=== PATIENT | male | born 1945 ===

== ENCOUNTER 2016-10-20 03:06 | Emergency (ER) | payer MEDICARE, MEDICAID ==
[2016-10-20 03:06] VITALS: BMI 45.0
--- NOTE | 2016-10-20 04:11 | ED PDOC ---
HPI: Eye Injury/Pain Additional Complaint(s): 71M p/w a few hours of blurry vision after awakening, but denies associated headaches/ pain on eye movement/double vision/color discrimination/discharge. He says he has had minimal itchiness and ran out of medication 2 months ago. His blurry vision resolved on arrival to the ED. He reports chronic waxing/waning b/l eye redness for which he is being worked up for glaucoma and cataracts with Dr Taylor. PMD: Dr Bruce PMH: HF, COPD, DM, HTN, MÓNICA, Schizophrenia, Prostate ca, denies CVA/IA PSH: Prostate seeds Allergies: NKDA <Kira Soares - Last Filed: 10/20/16 04:36> <Brigid Macedo - Last Filed: 10/20/16 05:57> Time Seen by Provider: 10/20/16 03:33 Chief Complaint (Nursing): Eye Problem Past Medical History Vital Signs: Last Vital Signs Temp 37.0 C 10/20/16 03:15 Pulse 94 H 10/20/16 03:15 Resp 16 10/20/16 03:15 BP 163/76 H 10/20/16 03:15 Pulse Ox 99 10/20/16 03:15 - Medical History PMH: Anxiety, Arthritis, Asthma, Bipolar Disorder, COPD, Depression, Diabetes, Emphysema, HTN, Hypercholesterolemia, Rheumatoid Arthritis, Schizophrenia, Sleep Apnea Denies: Chronic Kidney Disease - Family History Family History: States: Unknown Family Hx <Kira Soares - Last Filed: 10/20/16 04:36> Vital Signs: Last Vital Signs Temp 98.6 F 10/20/16 03:15 Pulse 94 H 10/20/16 03:15 Resp 16 10/20/16 03:15 BP 163/76 H 10/20/16 03:15 Pulse Ox 99 10/20/16 04:39 <Brigid Macedo - Last Filed: 10/20/16 05:57> - Home Medications Home Medications: Ambulatory Orders Medication Instructions Recorded ALPRAZolam [Xanax] 1 mg PO DAILY 08/10/16 Aripiprazole 15 mg PO DAILY 08/10/16 Bimatoprost [Lumigan] 1 drop BOTHEYES HS 08/10/16 Brinzolamide/Brimonidine Tart 1 drop BOTHEYES BID 08/10/16 [Simbrinza 1%-0.2% Eye Drops] Glimepiride [amaRYL] 2 mg PO QAM 08/10/16 Ibuprofen [Motrin Tab] 400 mg PO Q6 #30 tab 08/10/16 Levocetirizine Dihydrochloride 5 mg PO DAILY 08/10/16 [Xyzal] Metformin HCl [Metformin HCl ER] 500 mg PO DAILY 08/10/16 Montelukast Sodium [Singulair] 10 mg PO QPM 08/10/16 Naproxen [Naprosyn] 500 mg PO BID 08/10/16 Olanzapine [Zyprexa] 20 mg PO HS 08/10/16 Oxycodone HCl/Acetaminophen 1 tab PO Q6 PRN 08/10/16 [Primlev 7.5-300 mg Tablet] Propylene Glycol/Peg 400 [Systane 1 drop BOTHEYES DAILY 08/10/16 Gel Eye Drops] Rosuvastatin Calcium [Crestor] 10 mg PO DAILY 08/10/16 Sertraline HCl 100 mg PO DAILY 08/10/16 Valsartan [Diovan] 160 mg PO DAILY 08/10/16 ARIPiprazole [Abilify] 15 mg PO DAILY 08/12/16 Aspirin [Adult Low Dose Aspirin EC] 81 mg PO DAILY 08/12/16 Fluticasone Nasal [Flonase] 1 spray NADIYA DAILY 08/12/16 Fluticasone/Vilanterol [Breo 1 puff INH DAILY 08/12/16 Ellipta 200-25 Mcg INH] Home Med 1 puff INH QID 08/12/16 Potassium Chloride [Klor-Con M10] 1 tab PO MWF 08/12/16 Azithromycin [Zithromax] 500 mg PO DAILY #3 tablet 08/21/16 Furosemide [Lasix] 40 mg PO BID #0 08/21/16 - Allergies Allergies/Adverse Reactions: Allergies Allergy/AdvReac Type Severity Reaction Status Date / Time No Known Allergies Allergy Verified 10/20/16 03:14 Review of Systems ROS Statement: Except As Marked, All Systems Reviewed And Found Negative Eyes: Positive for: Vision Change <Kira Soares - Last Filed: 10/20/16 04:36> Physical Exam - Reviewed Vital Signs Reviewed: Yes - Physical Exam Appears: Positive for: Well, Non-toxic, No Acute Distress Head Exam: Positive for: ATRAUMATIC, NORMAL INSPECTION Skin: Positive for: Warm, Dry Eye Exam: Positive for: EOMI, PERRL, Conjunctival injection. Negative for: Nystagmus, Periorbital swelling, Periorbital tenderness Neck: Positive for: Normal, Supple Cardiovascular/Chest: Positive for: Regular Rate, Rhythm. Negative for: JVD Respiratory: Positive for: Normal Breath Sounds. Negative for: Rales, Rhonchi, Wheezing Gastrointestinal/Abdominal: Positive for: Bowel Sounds, Soft. Negative for: Tenderness Extremity: Positive for: Pedal Edema (2-3+ to proximal tibia), Capillary Refill. 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 Negative for: Facial Droop <Kira Soares - Last Filed: 10/20/16 04:36> - ECG O2 Sat by Pulse Oximetry: 99 <Kira Soares - Last Filed: 10/20/16 04:36> Medical Decision Making Medical Decision Making: Visual blurriness that has resolved dryness vs. cataracts vs. acute angle glaucoma (much less likely) - Visual Acuity Assessment - CT Head Visual Acuity with corrective lenses: OS-20/50, OD-20/25 <Kira Soares - Last Filed: 10/20/16 04:36> Medical Decision Makin: CT head impression: 1. No definite acute intracranial abnormality. Acute infarction may be CT occult within first 24 hours. If a focal deficit persists, consider followup CT or MRI for further evaluation. Patient stable for d/c. Patient will see [facility] today. CT results discussed with patient who understands and agrees with the plan. Instructed to return to the ED with worsening or concerning symptoms. <Brigid Macedo Y - Last Filed: 10/20/16 05:57> Disposition <Kira Soares - Last Filed: 10/20/16 04:36> - Patient ED Disposition Is Patient to be Admitted: No - Disposition Disposition: Routine/Home Disposition Time: 05:57 <Brigid Macedo - Last Filed: 10/20/16 05:57> - Clinical Impression Clinical Impression: Eye strain - Disposition Referrals: [facility] [Outside] Santo Michael MD [Staff Provider] - Taqueria Bruce MD [Primary Care Provider] - Condition: GOOD Additional Instructions: follow up with opthalmologist today. return to the ED with any worsening or concerning symptoms. Instructions: Blurred Vision (ED)
--- NOTE | 2016-10-20 05:26 | CT ---
EXAM: CT Head Without Intravenous Contrast CLINICAL HISTORY: 71 years old, male; Signs and symptoms; Visual disturbance; Additional info: Blurry vision TECHNIQUE: Axial computed tomography images of the head/brain without intravenous contrast. This CT exam was performed using one or more of the following dose reduction techniques: automated exposure control, adjustment of the mA and/or kV according to patient size, and/or use of iterative reconstruction technique. Coronal and sagittal reformatted images were created and reviewed. COMPARISON: No relevant prior studies available. FINDINGS: Brain: Mild atrophy. No intracranial hemorrhage. No mass. No definite edema. Ventricles: No hydrocephalus. Bones/joints: No acute fracture. Soft tissues: Unremarkable. Vasculature: Atherosclerotic disease of intracranial arteries. Sinuses: Scattered minimal mucosal thickening. Mastoid air cells: No mastoid effusion. Orbits: Unremarkable as visualized. IMPRESSION: 1. No definite acute intracranial abnormality. Acute infarction may be CT occult within first 24 hours. If a focal deficit persists, consider followup CT or MRI for further evaluation. 2. Incidental/non-acute findings are described above.
--- NOTE | 2016-10-20 07:40 | ED PDOC ---
HPI: General Adult Time Seen by Provider: 10/20/16 03:33 Chief Complaint (Nursing): Eye Problem History Per: Patient History/Exam Limitations: no limitations Additional Complaint(s): 71yo male complaining of bilateral eye redness and tearing. Patient admits he was already seen for the same complaint by a provider during the previous shift. He tells me his eyes were itching yesterday but not today. Denies drainage. Also notes some runny nose and congestion. Dr. Loco Past Medical History Vital Signs: Last Vital Signs Temp 98.6 F 10/20/16 03:15 Pulse 94 H 10/20/16 03:15 Resp 16 10/20/16 03:15 BP 163/76 H 10/20/16 03:15 Pulse Ox 99 10/20/16 04:39 - Medical History PMH: Anxiety, Arthritis, Asthma, Bipolar Disorder, COPD, Depression, Diabetes, Emphysema, HTN, Hypercholesterolemia, Rheumatoid Arthritis, Schizophrenia, Sleep Apnea Denies: Chronic Kidney Disease - Family History Family History: States: Unknown Family Hx - Home Medications Home Medications: Ambulatory Orders Medication Instructions Recorded ALPRAZolam [Xanax] 1 mg PO DAILY 08/10/16 Aripiprazole 15 mg PO DAILY 08/10/16 Bimatoprost [Lumigan] 1 drop BOTHEYES HS 08/10/16 Brinzolamide/Brimonidine Tart 1 drop BOTHEYES BID 08/10/16 [Simbrinza 1%-0.2% Eye Drops] Glimepiride [amaRYL] 2 mg PO QAM 08/10/16 Ibuprofen [Motrin Tab] 400 mg PO Q6 #30 tab 08/10/16 Levocetirizine Dihydrochloride 5 mg PO DAILY 08/10/16 [Xyzal] Metformin HCl [Metformin HCl ER] 500 mg PO DAILY 08/10/16 Montelukast Sodium [Singulair] 10 mg PO QPM 08/10/16 Naproxen [Naprosyn] 500 mg PO BID 08/10/16 Olanzapine [Zyprexa] 20 mg PO HS 08/10/16 Oxycodone HCl/Acetaminophen 1 tab PO Q6 PRN 08/10/16 [Primlev 7.5-300 mg Tablet] Propylene Glycol/Peg 400 [Systane 1 drop BOTHEYES DAILY 08/10/16 Gel Eye Drops] Rosuvastatin Calcium [Crestor] 10 mg PO DAILY 08/10/16 Sertraline HCl 100 mg PO DAILY 08/10/16 Valsartan [Diovan] 160 mg PO DAILY 08/10/16 ARIPiprazole [Abilify] 15 mg PO DAILY 08/12/16 Aspirin [Adult Low Dose Aspirin EC] 81 mg PO DAILY 08/12/16 Fluticasone Nasal [Flonase] 1 spray NADIYA DAILY 08/12/16 Fluticasone/Vilanterol [Breo 1 puff INH DAILY 08/12/16 Ellipta 200-25 Mcg INH] Home Med 1 puff INH QID 08/12/16 Potassium Chloride [Klor-Con M10] 1 tab PO MWF 08/12/16 Azithromycin [Zithromax] 500 mg PO DAILY #3 tablet 08/21/16 Furosemide [Lasix] 40 mg PO BID #0 08/21/16 - Allergies Allergies/Adverse Reactions: Allergies Allergy/AdvReac Type Severity Reaction Status Date / Time No Known Allergies Allergy Verified 10/20/16 03:14 - ECG O2 Sat by Pulse Oximetry: 99 Disposition - Clinical Impression Clinical Impression: Eye strain - Disposition Referrals: [facility] [Outside] Santo Michael MD [Staff Provider] - Taqueria Bruce MD [Primary Care Provider] - Disposition: Routine/Home Disposition Time: 05:57 Condition: GOOD Additional Instructions: follow up with opthalmologist today. return to the ED with any worsening or concerning symptoms. Instructions: Blurred Vision (ED)
[2016-10-20 07:43] VITALS: BP 152/81; PULSE 78; RESP 18; TEMP 97.8; O2SAT 96
== END 2016-10-20 10:25 | disposition home or self-care (01) ==
LOC: H.ER 03:06
DX: H53.8 Other visual disturbances (principal)

== ENCOUNTER 2017-03-23 12:39 | Emergency (ER) | payer MEDICARE, MEDICAID ==
[2017-03-23 12:39] VITALS: BMI 45.0
[2017-03-23 12:46] VITALS: BP 134/66; PULSE 99; RESP 18; TEMP 98; O2SAT 99
--- NOTE | 2017-03-23 13:26 | ED PDOC ---
HPI: General Adult Time Seen by Provider: 03/23/17 12:49 Chief Complaint (Nursing): Abnormal Skin Integrity History Per: Patient Additional Complaint(s): Pt. states for the past 3 weeks he's had a pruritic rash initially on the back of both knees. States that rash has since spread to the back of his b/l upper arms and both sides of back and around his waist area. Pt. was prescribed Xyzal by Dr. Bruce for the rash with minimal relief. Denies fever, SOB. Of note, pt. states he wears the same jeans every day for a long time now. Past Medical History Reviewed: Historical Data, Nursing Documentation, Vital Signs Vital Signs: Last Vital Signs Temp 98.0 F 03/23/17 12:43 Pulse 99 H 03/23/17 12:43 Resp 18 03/23/17 12:43 BP 134/66 03/23/17 12:43 Pulse Ox 99 03/23/17 12:43 - Medical History PMH: Anxiety, Arthritis, Asthma, Bipolar Disorder, COPD, Depression, Diabetes, Emphysema, HTN, Hypercholesterolemia, Rheumatoid Arthritis, Schizophrenia, Sleep Apnea Denies: Chronic Kidney Disease - Family History Family History: States: No Known Family Hx - Home Medications Home Medications: Ambulatory Orders Medication Instructions Recorded ALPRAZolam [Xanax] 1 mg PO DAILY 08/10/16 Aripiprazole 15 mg PO DAILY 08/10/16 Bimatoprost [Lumigan] 1 drop BOTHEYES HS 08/10/16 Brinzolamide/Brimonidine Tart 1 drop BOTHEYES BID 08/10/16 [Simbrinza 1%-0.2% Eye Drops] Glimepiride [amaRYL] 2 mg PO QAM 08/10/16 Ibuprofen [Motrin Tab] 400 mg PO Q6 #30 tab 08/10/16 Levocetirizine Dihydrochloride 5 mg PO DAILY 08/10/16 [Xyzal] Metformin HCl [Metformin HCl ER] 500 mg PO DAILY 08/10/16 Montelukast Sodium [Singulair] 10 mg PO QPM 08/10/16 Naproxen [Naprosyn] 500 mg PO BID 08/10/16 Olanzapine [Zyprexa] 20 mg PO HS 08/10/16 Oxycodone HCl/Acetaminophen 1 tab PO Q6 PRN 08/10/16 [Primlev 7.5-300 mg Tablet] Propylene Glycol/Peg 400 [Systane 1 drop BOTHEYES DAILY 08/10/16 Gel Eye Drops] Rosuvastatin Calcium [Crestor] 10 mg PO DAILY 08/10/16 Sertraline HCl 100 mg PO DAILY 08/10/16 Valsartan [Diovan] 160 mg PO DAILY 08/10/16 ARIPiprazole [Abilify] 15 mg PO DAILY 08/12/16 Aspirin [Adult Low Dose Aspirin EC] 81 mg PO DAILY 08/12/16 Fluticasone Nasal [Flonase] 1 spray NADIYA DAILY 08/12/16 Fluticasone/Vilanterol [Breo 1 puff INH DAILY 08/12/16 Ellipta 200-25 Mcg INH] Home Med 1 puff INH QID 08/12/16 Potassium Chloride [Klor-Con M10] 1 tab PO MWF 08/12/16 Azithromycin [Zithromax] 500 mg PO DAILY #3 tablet 08/21/16 Furosemide [Lasix] 40 mg PO BID #0 08/21/16 Cetirizine HCl [Zyrtec] 10 mg PO DAILY #10 capsule 10/20/16 Tobramycin 0.3% [Tobramycin 5 Ml] 1 drop OP TID #1 bottle 10/20/16 Hydrocortisone 2.5% 1 applic TOP BID PRN #5 03/23/17 Hydroxyzine HCl 1 - 2 tab PO Q8 PRN #30 tablet 03/23/17 - Allergies Allergies/Adverse Reactions: Allergies Allergy/AdvReac Type Severity Reaction Status Date / Time No Known Allergies Allergy Verified 10/20/16 03:14 Review of Systems ROS Statement: Except As Marked, All Systems Reviewed And Found Negative Skin: Positive for: Rash Physical Exam - Physical Exam Appears: Positive for: Well, Non-toxic, No Acute Distress Skin: Positive for: Normal Color, Warm, Rash (scattered erythematous papules on b/l posterior legs, b/l posterior upper arms, b/l of entire back and around entire waist line; no vesicles or surrounding erythema or pustles) Eye Exam: Positive for: Normal appearance Extremity: Positive for: Normal ROM Neurologic/Psych: Positive for: Alert, Oriented. Negative for: Aphasia, Facial Droop - ECG O2 Sat by Pulse Oximetry: 99 - Progress ED Course And Treament: FSBS: [address] Alvarado who recommends Hydrocortisone 2% and hydroxyzine. Case d/w Dr. Bruce who agrees with care and requests that pt. call his office tomorrow to make an appointment. Disposition - Clinical Impression Clinical Impression: Contact dermatitis - Patient ED Disposition Is Patient to be Admitted: No - Disposition Referrals: Taqueria Bruce MD [Staff Provider] - Disposition: Routine/Home Disposition Time: 13:20 Condition: STABLE Prescriptions: Hydrocortisone 2.5% 1 applic TOP BID PRN #5 PRN Reason: Rash Hydroxyzine HCl 1 - 2 tab PO Q8 PRN #30 tablet PRN Reason: itching or rash Instructions: Contact Dermatitis (ED) Print Language: COMORAN
== END 2017-03-23 14:41 | disposition home or self-care (01) ==
LOC: H.ER 12:39
DX: L25.9 Unspecified contact dermatitis, unspecified cause (principal)

== ENCOUNTER 2017-04-02 17:00 | Inpatient (IN) | payer MEDICARE, MEDICAID ==
[2017-04-02 17:00] VITALS: BMI 45.0
--- NOTE | 2017-04-02 19:23 | ED PDOC ---
Lower Extremity Pain/Injury Time Seen by Provider: 04/02/17 19:08 Chief Complaint (Nursing): Lower Extremity Problem/Injury Chief Complaint (Provider): right leg pain/swelling History Per: Patient History/Exam Limitations: no limitations Onset/Duration Of Symptoms: Days (1 month) Current Symptoms Are (Timing): Still Present Additional History Per: Patient Additional Complaint(s): 71 y/o male presents with right leg pain/swelling x 1 month. Patient states he thinks he may have banged right lower leg on a fan one month ago, since then has had problem with redness, pain, and swelling. Patient was seen by his primary doctor Dr. Bruce, who prescribed Mupirocin and "antibiotic pills" 5 days ago but patient notes symptoms to be worsening. Patient states he thinks he may have saw pus coming from area today. Denies fever, nausea/vomiting, chest pain, shortness of breath, palpitations, numbness/weakness lower extremities, limitation of movement. Past Medical History Reviewed: Historical Data, Nursing Documentation, Vital Signs Vital Signs: Last Vital Signs Temp 99.0 F 04/02/17 17:32 Pulse 104 H 04/02/17 17:32 Resp 16 04/02/17 17:32 BP 133/77 04/02/17 17:32 Pulse Ox 94 L 04/02/17 17:32 - Medical History PMH: Anxiety, Arthritis, Asthma, Bipolar Disorder, COPD, Depression, Diabetes, Emphysema, HTN, Hypercholesterolemia, Rheumatoid Arthritis, Schizophrenia, Sleep Apnea Denies: Chronic Kidney Disease - Family History Family History: States: Unknown Family Hx - Home Medications Home Medications: Ambulatory Orders Medication Instructions Recorded ALPRAZolam [Xanax] 1 mg PO DAILY 08/10/16 Aripiprazole 15 mg PO DAILY 08/10/16 Glimepiride [amaRYL] 2 mg PO QAM 08/10/16 Levocetirizine Dihydrochloride 5 mg PO DAILY 08/10/16 [Xyzal] Metformin HCl [Metformin HCl ER] 500 mg PO DAILY 08/10/16 Montelukast Sodium [Singulair] 10 mg PO QPM 08/10/16 Rosuvastatin Calcium [Crestor] 10 mg PO DAILY 08/10/16 Sertraline HCl 100 mg PO DAILY 08/10/16 Valsartan [Diovan] 160 mg PO DAILY 08/10/16 Fluticasone Nasal [Flonase] 1 spray NADIYA DAILY 08/12/16 Fluticasone/Vilanterol [Breo 1 puff INH DAILY 08/12/16 Ellipta 200-25 Mcg INH] Olanzapine [Zyprexa] 15 mg PO DAILY 04/03/17 Torsemide [Demadex] 20 mg PO BID 04/03/17 - Allergies Allergies/Adverse Reactions: Allergies Allergy/AdvReac Type Severity Reaction Status Date / Time No Known Allergies Allergy Verified 10/20/16 03:14 Review of Systems ROS Statement: Except As Marked, All Systems Reviewed And Found Negative Musculoskeletal: Positive for: Leg Pain (right lower leg) Physical Exam - Reviewed Nursing Documentation Reviewed: Yes Vital Signs Reviewed: Yes - Physical Exam Appears: Positive for: Well, Non-toxic, No Acute Distress Head Exam: Positive for: ATRAUMATIC, NORMAL INSPECTION, NORMOCEPHALIC Skin: Positive for: Normal Color Cardiovascular/Chest: Positive for: Regular Rate, Rhythm Respiratory: Positive for: Normal Breath Sounds Extremity: Positive for: Swelling (bilateral lower extremities, R>L. Distal right lower extremity with scabbed abrasions lateral aspect. + surrounding erythema, tenderness, warm to touch. No drainage. FROM) Neurologic/Psych: Positive for: Alert, Oriented - Laboratory Results Result Diagrams: 04/02/17 19:55 04/02/17 19:55 - ECG ECG: Positive for: Viewed By Me (reviewed by ED attending) ECG Rhythm: Positive for: Sinus Rhythm O2 Sat by Pulse Oximetry: 94 Pulse Ox Interpretation: Normal - Radiology X-Ray: Viewed By Me X-Ray Interpretation: No Acute Disease - Progress ED Course And Treament: labs, venous duplex right lower extremity EXAM: US Duplex Right Lower Extremity Veins EXAM DATE/TIME: 04/02/2017 7:19 PM CLINICAL HISTORY: 71 years old, male; Pain; Leg, lower; Right; Additional info: Right leg pain/ swelling TECHNIQUE: Real-time ultrasound scan of the veins of the right lower extremity with color Doppler flow, spectral waveform analysis and compression. COMPARISON: US - DUPLEX LOWER EXTRM VEIN RIGHT 2015-08-05 13:22 FINDINGS: Deep veins: Common femoral, superficial femoral and popliteal veins were evaluated. Posterior tibial vein could not be visualized. All veins examined are compressible. There are no intraluminal filling defects. There is expected blood flow on Doppler imaging. There is change in waveform with augmentation Soft tissues: There is diffuse edema in the calf and continuing to the right ankle. Calf edema prevents identification of the posterior tibial vein. There is a fluid collection in the right popliteal fossa Impression: No deep venous thrombosis in the visualized vascular segments of the right lower extremity; continued diffuse calf edema which prevents visualization of the posterior tibial vein; new fluid collection in the right popliteal fossa Thank you for allowing us to participate in the care of your patient. Case discussed with Dr. Bruce, will admit for failed outpatient treatment of cellulitis. IV vanco, IV zosyn doses ordered in ED Disposition - Clinical Impression Clinical Impression: Cellulitis - Patient ED Disposition Is Patient to be Admitted: Yes - Disposition Disposition Time: 22:19 Condition: FAIR
[2017-04-02 20:07] LABS: BASO # 0.1 K/uL (0.0-0.2); BASO % 0.8 % (0.0-2.0); EOS # 0.2 K/uL (0.0-0.7); EOS % 2.5 % (0.0-4.0); HEMATOCRIT 40.3 % (35.0-51.0); LYMPH # 1.5 K/uL (1.0-4.3); LYMPH % 18.6 % (20.0-40.0); MEAN CORPUSCULAR HEMOGLOBIN 28.4 pg (27.0-31.0); MEAN CORPUSCULAR HGB CONC 32.2 g/dL (33.0-37.0); MEAN PLATELET VOLUME 7.5 fl (7.2-11.7); MONO # 0.6 K/uL (0.0-0.8); MONO % 7.8 % (0.0-10.0); NEUT # 5.8 K/uL (1.8-7.0); NEUT % 70.3 % (50.0-75.0); RED CELL DISTRIBUTION WIDTH 14.5 % (11.5-14.5); WHITE BLOOD COUNT 8.3 K/uL (4.8-10.8)
[2017-04-02 20:11] LABS: VENOUS BLOOD GAS BASE EXCESS 5.5 mmol/L (0.0-2.0); VENOUS BLOOD GAS MODE ROOM AIR; VENOUS BLOOD GAS PCO2 56 mmHg (40-60); VENOUS BLOOD PH 7.37 (7.32-7.43)
[2017-04-02 20:21] LABS: ALB/GLOB RATIO 1.2 (1.0-2.1); ALKALINE PHOSPHATASE 69 U/L (38-126); ALT/SGPT 51 U/L (21-72); AST/SGOT 62 U/L (17-59); BILIRUBIN,TOTAL 0.2 mg/dl (0.2-1.3); BLOOD UREA NITROGEN 21 mg/dl (9-20); CALCIUM 8.6 mg/dL (8.4-10.2); CARBON DIOXIDE 30 mmol/L (22-30); CHLORIDE 106 mmol/L (98-107); GFR AFRICAN-AMERICAN > 60; GLUCOSE,RANDOM 70 mg/dL (75-110); POTASSIUM 3.7 MMOL/L (3.6-5.0); SODIUM 146 mmol/l (132-148)
--- NOTE | 2017-04-02 22:07 | US ---
EXAM: US Duplex Right Lower Extremity Veins EXAM DATE/TIME: 04/02/2017 7:19 PM CLINICAL HISTORY: 71 years old, male; Pain; Leg, lower; Right; Additional info: Right leg pain/swelling TECHNIQUE: Real-time ultrasound scan of the veins of the right lower extremity with color Doppler flow, spectral waveform analysis and compression. COMPARISON: US - DUPLEX LOWER EXTRM VEIN RIGHT 2015-08-05 13:22 FINDINGS: Deep veins: Common femoral, superficial femoral and popliteal veins were evaluated. Posterior tibial vein could not be visualized. All veins examined are compressible. There are no intraluminal filling defects. There is expected blood flow on Doppler imaging. There is change in waveform with augmentation Soft tissues: There is diffuse edema in the calf and continuing to the right ankle. Calf edema prevents identification of the posterior tibial vein. There is a fluid collection in the right popliteal fossa . Impression: No deep venous thrombosis in the visualized vascular segments of the right lower extremity; continued diffuse calf edema which prevents visualization of the posterior tibial vein; new fluid collection in the right popliteal fossa
[2017-04-02] MEDS ORDERED: Piperacillin/Tazobact 3.375 GM in Sodium Chloride 0.9% 100 ML IV ONE (22:14)
[2017-04-02] MEDS ORDERED: Vancomycin 1 g Inj ONE (22:37)
[2017-04-02] MEDS ORDERED: Piperacillin/Tazobact 3.375 gm Inj IVPB ONE (22:37)
[2017-04-03 06:55] LABS: HEMATOCRIT 37.7 % (35.0-51.0); MEAN CELL VOLUME 88.4 fl (80.0-94.0); MEAN CORPUSCULAR HEMOGLOBIN 28.6 pg (27.0-31.0); MEAN CORPUSCULAR HGB CONC 32.3 g/dL (33.0-37.0); RED CELL DISTRIBUTION WIDTH 14.6 % (11.5-14.5); WHITE BLOOD COUNT 6.8 K/uL (4.8-10.8)
[2017-04-03 07:25] LABS: ALB/GLOB RATIO 1.1 (1.0-2.1); ALKALINE PHOSPHATASE 59 U/L (38-126); ALT/SGPT 45 U/L (21-72); AST/SGOT 46 U/L (17-59); BILIRUBIN,TOTAL 0.2 mg/dl (0.2-1.3); BLOOD UREA NITROGEN 20 mg/dl (9-20); CALCIUM 8.1 mg/dL (8.4-10.2); CARBON DIOXIDE 29 mmol/L (22-30); CHLORIDE 107 mmol/L (98-107); CHOLESTEROL 104 mg/dL (0-199); GFR AFRICAN-AMERICAN > 60; GLUCOSE,RANDOM 95 mg/dL (75-110); POTASSIUM 3.8 MMOL/L (3.6-5.0); SODIUM 145 mmol/l (132-148); TOTAL PROTEIN 6.3 G/DL (6.3-8.2)
[2017-04-03] MEDS: Insulin Regular 100 units/ml SC SCH ×3 (07:30→22:45)
[2017-04-03 07:43] LABS: T4 6.31 ug/dl (5.5-11.0)
[2017-04-03 07:56] LABS: THYROID STIMULATING HORMONE 2.41 mIU/ML (0.46-4.68)
[2017-04-03] MEDS: GlipiZIDE 5 mg SR Tab PO SCH (08:00)
--- NOTE | 2017-04-03 08:04 | CARD ---
APPROVED REPORT EKG Measurement Heart [id number] <Conclusion> Normal sinus rhythm Right bundle branch block Abnormal ECG
[2017-04-03] MEDS ORDERED: ARIPIPRAZOLE 15 MG PO SCH (09:00)
[2017-04-03] MEDS: Piperacillin/Tazobact 3.375 GM in Sodium Chloride 0.9% 100 ML IVPB SCH ×3 (09:00→21:17)
[2017-04-03] MEDS: Enoxaparin 40 mg Syringe SC SCH (09:00)
--- NOTE | 2017-04-03 10:27 | RAD ---
HISTORY: admit COMPARISON: 08/21/2016. FINDINGS: LUNGS: The lungs are well inflated and. PLEURA: No significant pleural effusion identified, no pneumothorax apparent. CARDIOVASCULAR: Normal. OSSEOUS STRUCTURES: No significant abnormalities. VISUALIZED UPPER ABDOMEN: Normal. OTHER FINDINGS: None. IMPRESSION: No active pulmonary disease.
--- NOTE | 2017-04-03 13:10 | CP.PCM.HP ---
History of Present Illness - History of Present Illness History of Present Illness: CC: R leg pain. 71 y/o M, with multiple chronic medical conditions came to [facility] to be evaluated for pain in his RLE for a month increased one week [facility]. Pt c/o of RLE moderate severity pain 5:10 and at times severe, constant, sharp associated to redness/swelling, Pt using Mupirocin, abx for 5 days with no improvement. Worsening symptoms: Hx DMII, Hx Chronic Patricia Insufficiency L/E, Morbid obesity (BMI= 49.2), Edema 2+ pitting b/l legs and R/A. Patient reported that about a week [facility], while at the 2nd home he was scratching his R side of neck when the nurse told him he had a bed bug on that site, Pt was sent home and was requested to get a Medical clearance to return to [facility] prior to AD. Aggravated factor: Difficulty walking 2nd to pain and swelling. Pt denied: Fever, chills, n/v/d, abdominal pain, dizziness, CP, palpitation, numbness/weakness lower extremities, SOB, sick contact, recent travel. Hx of R/A, O/A, DMII, HTN, COPD, Sleep Apnea, Prostate Ca, Depression, Anxiety, Schizophrenia, Bipolar Disorder, Cataract, Glaucoma,Hx Tumor LLE removed years ago. Ext U-S shows: No DVT. Present on Admission - Present on Admission Any Indicators Present on Admission: No Review of Systems - Constitutional Constitutional: Other (Morbid obesity) - EENT Eyes: Loss of Vision Ears: Other (negative) Nose/Mouth/Throat: Other (negative) - Cardiovascular Cardiovascular: Leg Edema, Rapid Heart Rate - Respiratory Respiratory: Other (negative) - Gastrointestinal Gastrointestinal: Other (negative) - Genitourinary Genitourinary: Other (negative) - Musculoskeletal Musculoskeletal: Arthralgias, Other (RLE pain) - Integumentary Integumentary: Erythema, Swelling - Neurological Neurological: Other (negative) - Psychiatric Psychiatric: Anxiety, Depression - Endocrine Endocrine: Other (Morbid obesity) - Hematologic/Lymphatic Hematologic: Other (negative) Past Patient History - Infectious Disease Hx of Infectious Diseases: None - Past Medical History & Family History Past Medical History?: Yes Pertinent Family History: Unknown - Past Social History Smoking Status: Former Smoker Alcohol: None Drugs: Denies Home Situation {Lives}: Alone - CARDIAC Hx Cardiac Disorders: Yes Hx Hypercholesterolemia: Yes Hx Hypertension: Yes - PULMONARY Hx Respiratory Disorders: Yes Hx Asthma: Yes Hx Chronic Obstructive Pulmonary Disease (COPD): Yes Hx Emphysema: Yes Hx Sleep Apnea: Yes - NEUROLOGICAL Hx Neurological Disorder: No - HEENT Hx HEENT Problems: Yes Hx Cataracts: Yes Hx Glaucoma: Yes - RENAL Hx Chronic Kidney Disease: No - ENDOCRINE/METABOLIC Hx Endocrine Disorders: Yes Hx Diabetes Mellitus Type 2: Yes - HEMATOLOGICAL/ONCOLOGICAL Hx Blood Disorders: Yes Hx Cancer: Yes (Prostate) - INTEGUMENTARY Hx Dermatological Problems: Yes Hx Cellulitis: Yes (L/E) - MUSCULOSKELETAL/RHEUMATOLOGICAL Hx Musculoskeletal Disorders: Yes Hx Arthritis: Yes Hx Rheumatoid Arthritis: Yes - GASTROINTESTINAL Hx Gastrointestinal Disorders: No - GENITOURINARY/GYNECOLOGICAL Hx Genitourinary Disorders: Yes Hx Prostate Cancer: Yes - PSYCHIATRIC Hx Psychophysiologic Disorder: Yes Hx Anxiety: Yes Hx Bipolar Disorder: Yes Hx Depression: Yes Hx Schizophrenia: Yes - SURGICAL HISTORY Hx Surgeries: Yes Hx Joint Replacement: Yes (left knee) Hx Orthopedic Surgery: Yes (total left knee-11 years ago) Other/Comment: 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,index - ANESTHESIA Hx Anesthesia: Yes Hx Anesthesia Reactions: No Hx Malignant Hyperthermia: No Meds Home Medications: Home Medication List Medication Instructions Recorded Confirmed Type Insulin Human Regular [HumuLIN R] 0 units SC ACCU-CHECK ml 04/06/17 Rx Piperacill/Tazo 3.375gm in Dex 3.375 gm IVPB Q6 #15 bag 04/06/17 Rx [Zosyn 3.375 Gm IV] Allergies/Adverse Reactions: Allergies Allergy/AdvReac Type Severity Reaction Status Date / Time No Known Allergies Allergy Verified 10/20/16 03:14 Physical Exam - Constitutional Appears: Chronically Ill - Head Exam Head Exam: NORMAL INSPECTION - Eye Exam Eye Exam: Normal appearance - ENT Exam ENT Exam: Normal Exam - Neck Exam Neck exam: Positive for: Normal Inspection - Respiratory Exam Respiratory Exam: Decreased Breath Sounds (at bases) - Cardiovascular Exam Cardiovascular Exam: REGULAR RHYTHM - GI/Abdominal Exam GI & Abdominal Exam: Normal Bowel Sounds, Soft Additional comments: Obese - Extremities Exam Extremities exam: Positive for: tenderness (RLE) Additional comments: Redness, swelling RLE. BLE edema. L TKR. Amputation of 2 fingers left hand ( Middle and Index) - Back Exam Back exam: NORMAL INSPECTION - Neurological Exam Neurological exam: Alert, Oriented x3 Additional comments: No motor sensory deficit - Psychiatric Exam Psychiatric exam: Anxious - Skin Skin Exam: Warm - Expanded Skin Exam Expanded Type of lesion: Bite/Sting Distribution of rash: Back - Additional Findings Additional findings: posterior thigh Results - Vital Signs Recent Vital Signs: Last Vital Signs Temp 97.7 F 04/03/17 12:00 Pulse 96 H 04/03/17 12:00 Resp 18 04/03/17 12:00 BP 146/79 04/03/17 12:00 Pulse Ox 93 L 04/03/17 12:00 reviewed Tashi - Labs Result Diagrams: 04/03/17 06:45 04/03/17 06:45 Labs: Laboratory Results - last 24 hr 04/02/17 04/02/17 04/02/17 19:55 19:55 20:03 WBC 8.3 RBC 4.58 Hgb 13.0 Hct 40.3 MCV 88.0 MCH 28.4 MCHC 32.2 L RDW 14.5 Plt Count 284 MPV 7.5 Neut % (Auto) 70.3 Lymph % (Auto) 18.6 L [place] % (Auto) 7.8 Eos % (Auto) 2.5 Baso % (Auto) 0.8 Neut # 5.8 Lymph # 1.5 [place] # 0.6 Eos # 0.2 Baso # 0.1 pO2 26 L VBG pH 7.37 VBG pCO2 56 VBG HCO3 27.8 VBG Total CO2 34.1 H VBG O2 Sat (Calc) 55.0 VBG Base Excess 5.5 H VBG Potassium 3.6 Glucose 72 L Lactate 1.3 FiO2 21.0 Sodium 146 142.0 Potassium 3.7 Chloride 106 107.0 Carbon Dioxide 30 Anion Gap 14 BUN 21 H Creatinine 1.2 Est GFR ( Amer) > 60 Est GFR (Non-Af Amer) > 60 POC Glucose (mg/dL) Random Glucose 70 L Hemoglobin A1c Calcium 8.6 Total Bilirubin 0.2 AST 62 H ALT 51 Alkaline Phosphatase 69 Total Protein 7.0 Albumin 3.8 Globulin 3.2 Albumin/Globulin Ratio 1.2 Triglycerides Cholesterol LDL Cholesterol Direct HDL Cholesterol Thyroxine (T4) Total T3 TSH 3rd Generation Venous Blood Potassium 3.6 04/03/17 04/03/17 04/03/17 06:25 06:45 06:45 WBC 6.8 RBC 4.27 L Hgb 12.2 Hct 37.7 MCV 88.4 MCH 28.6 MCHC 32.3 L RDW 14.6 H Plt Count 257 MPV Neut % (Auto) Lymph % (Auto) [place] % (Auto) Eos % (Auto) Baso % (Auto) Neut # Lymph # [place] # Eos # Baso # pO2 VBG pH VBG pCO2 VBG HCO3 VBG Total CO2 VBG O2 Sat (Calc) VBG Base Excess VBG Potassium Glucose Lactate FiO2 Sodium 145 Potassium 3.8 Chloride 107 Carbon Dioxide 29 Anion Gap 13 BUN 20 Creatinine 1.1 Est GFR ( Amer) > 60 Est GFR (Non-Af Amer) > 60 POC Glucose (mg/dL) 97 Random Glucose 95 Hemoglobin A1c Calcium 8.1 L Total Bilirubin 0.2 AST 46 ALT 45 Alkaline Phosphatase 59 Total Protein 6.3 Albumin 3.4 L Globulin 3.0 Albumin/Globulin Ratio 1.1 Triglycerides 83 Cholesterol 104 LDL Cholesterol Direct 48 HDL Cholesterol 33 Thyroxine (T4) 6.31 Total T3 1.02 L TSH 3rd Generation 2.41 Venous Blood Potassium 04/03/17 04/03/17 06:45 11:13 WBC RBC Hgb Hct MCV MCH MCHC RDW Plt Count MPV Neut % (Auto) Lymph % (Auto) [place] % (Auto) Eos % (Auto) Baso % (Auto) Neut # Lymph # [place] # Eos # Baso # pO2 VBG pH VBG pCO2 VBG HCO3 VBG Total CO2 VBG O2 Sat (Calc) VBG Base Excess VBG Potassium Glucose Lactate FiO2 Sodium Potassium Chloride Carbon Dioxide Anion Gap BUN Creatinine Est GFR ( Amer) Est GFR (Non-Af Amer) POC Glucose (mg/dL) 144 H Random Glucose Hemoglobin A1c 6.0 Calcium Total Bilirubin AST ALT Alkaline Phosphatase Total Protein Albumin Globulin Albumin/Globulin Ratio Triglycerides Cholesterol LDL Cholesterol Direct HDL Cholesterol Thyroxine (T4) Total T3 TSH 3rd Generation Venous Blood Potassium reviewed J.P. - EKG Data EKG comments: reviewed j.P. - Imaging and Cardiology Venous US Status: Report reviewed by me (AbielP.) Chest x-ray Status: Report reviewed by me (AbielP.) Assessment & Plan (1) Cellulitis of right lower extremity Status: Acute Priority: High (2) COPD (chronic obstructive pulmonary disease) Status: Chronic Priority: Medium (3) DMII (diabetes mellitus, type 2) Status: Chronic Priority: Medium (4) HTN (hypertension) Status: Chronic Priority: Medium (5) RA (rheumatoid arthritis) Status: Chronic Priority: Medium (6) Venous insufficiency of lower extremity Status: Chronic Priority: Medium (7) Anxiety Status: Chronic Priority: Medium (8) High cholesterol Status: Chronic Priority: Low (9) Infestation by bed bug Status: Acute - Assessment and Plan (Free Text) Plan: F/U Blood and U C-S. Continue Vanco, Zosyn, Lovenox, Demadex and rest of Tx. , contact isolation , PT eval. - Date & Time Date: 04/03/17 Time: 11:00
[2017-04-04] MEDS: Piperacillin/Tazobact 3.375 GM in Sodium Chloride 0.9% 100 ML IVPB SCH ×4 (04:26→21:16)
[2017-04-04] MEDS: Insulin Regular 100 units/ml SC SCH ×4 (07:55→23:00)
[2017-04-04] MEDS: GlipiZIDE 5 mg SR Tab PO SCH (08:00)
[2017-04-04] MEDS: Enoxaparin 40 mg Syringe SC SCH (09:51)
--- NOTE | 2017-04-04 11:41 | CP.PCM.CON ---
History of Present Illness - History of Present Illness History of Present Illness: 71 y/o morbidly obese male seen at bedside for podiatry consult for right leg swelling. Pt states he noticed the leg swell over the last week and become more red. Pt admits to a history of this swelling over the last month since he bumped his leg on a fan, Pt sees Dr. Bruce regularly as an outpatient and he prescribed him antibiotics and topical antibiotic cream. Pt admits to a recent bed bug infestation approx 5-6 days ago and believes this to be related to this recent increase in swelling and redness. Pt denies experiencing F/C/N/V/CP/SOB over this past week. Pt states his diabetes is well controlled and that he sees a timber killer in [facility] regularly for routine diabetic care. Pt denies any history of diabetic ulcerations. Pt admits to occasional tingling in the legs and feet. Pt denies burning or numbness. PMH: DM type II, HTN, schizophrenia, depression, bipolar disorder PSH: L total knee replacement, polyp removal from R ear, digital amputations L hand All: NKDA Social: former cigarette smoker, former social EtOH, denies illicit drug use Review of Systems - Review of Systems All systems: reviewed and no additional remarkable complaints except (per HPI) Past Patient History - Infectious Disease Hx of Infectious Diseases: None - Past Medical History & Family History Past Medical History?: Yes - Past Social History Smoking Status: Former Smoker Alcohol: None Drugs: Denies Home Situation {Lives}: Alone - CARDIAC Hx Cardiac Disorders: Yes Hx Hypercholesterolemia: Yes Hx Hypertension: Yes - PULMONARY Hx Respiratory Disorders: Yes Hx Asthma: Yes Hx Chronic Obstructive Pulmonary Disease (COPD): Yes Hx Emphysema: Yes Hx Sleep Apnea: Yes - NEUROLOGICAL Hx Neurological Disorder: No - HEENT Hx HEENT Problems: Yes Hx Cataracts: Yes Hx Glaucoma: Yes - RENAL Hx Chronic Kidney Disease: No - ENDOCRINE/METABOLIC Hx Endocrine Disorders: Yes Hx Diabetes Mellitus Type 2: Yes - HEMATOLOGICAL/ONCOLOGICAL Hx Blood Disorders: Yes Hx Cancer: Yes (Prostate) - INTEGUMENTARY Hx Dermatological Problems: Yes Hx Cellulitis: Yes (L/E) - MUSCULOSKELETAL/RHEUMATOLOGICAL Hx Musculoskeletal Disorders: Yes Hx Arthritis: Yes Hx Rheumatoid Arthritis: Yes - GASTROINTESTINAL Hx Gastrointestinal Disorders: No - GENITOURINARY/GYNECOLOGICAL Hx Genitourinary Disorders: Yes Hx Prostate Cancer: Yes - PSYCHIATRIC Hx Psychophysiologic Disorder: Yes Hx Anxiety: Yes Hx Bipolar Disorder: Yes Hx Depression: Yes Hx Schizophrenia: Yes - SURGICAL HISTORY Hx Surgeries: Yes Hx Joint Replacement: Yes (left knee) Hx Orthopedic Surgery: Yes (total left knee-11 years ago) Other/Comment: 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,index - ANESTHESIA Hx Anesthesia: Yes Hx Anesthesia Reactions: No Hx Malignant Hyperthermia: No Meds Allergies/Adverse Reactions: Allergies Allergy/AdvReac Type Severity Reaction Status Date / Time No Known Allergies Allergy Verified 10/20/16 03:14 - Medications Medications: Current Medications Alprazolam (Xanax) 1 mg PO DAILY [facility] Last Admin: 04/04/17 11:24 Dose: 1 mg Aripiprazole (Abilify) 15 mg PO DAILY [facility] Last Admin: 04/04/17 09:54 Dose: 15 mg Atorvastatin Calcium (Lipitor) 20 mg PO DAILY [facility] Last Admin: 04/04/17 09:56 Dose: 20 mg Enoxaparin Sodium (Lovenox) 40 mg SC DAILY [facility] PRN Reason: Protocol Last Admin: 04/04/17 09:51 Dose: 40 mg Fluticasone Propionate (Flonase) 1 spr NADIYA DAILY [facility] Last Admin: 04/04/17 09:52 Dose: 1 spr Glipizide (Glucotrol Xl) 5 mg PO BRK [facility] Last Admin: 04/04/17 08:00 Dose: 5 mg Piperacillin Sod/Tazobactam (Sod 3.375 gm/ Sodium Chloride) 100 mls @ 100 mls/ hr IVPB Q6 [facility] PRN Reason: Protocol Last Admin: 04/04/17 09:50 Dose: 100 mls/hr Vancomycin HCl 1 gm/ Sodium (Chloride) 250 mls @ 166.667 mls/hr IVPB Q12 [facility] PRN Reason: Protocol Last Admin: 04/04/17 09:51 Dose: 166.667 mls/hr Insulin Human Regular (Humulin R) 0 units SC ACCU-CHECK [facility] PRN Reason: Protocol Last Admin: 04/04/17 07:55 Dose: Not Given Loratadine (Claritin) 10 mg PO DAILY [facility] Last Admin: 04/04/17 09:53 Dose: 10 mg Metformin HCl (Glucophage) 250 mg PO BIDWM [facility] Last Admin: 04/04/17 08:20 Dose: 250 mg Montelukast Sodium (Singulair) 10 mg PO QPM [facility] Last Admin: 04/03/17 21:19 Dose: 10 mg Olanzapine (Zyprexa) 15 mg PO DAILY [facility] Last Admin: 04/04/17 09:53 Dose: 15 mg Sertraline HCl (Zoloft) 100 mg PO DAILY [facility] Last Admin: 04/04/17 09:53 Dose: 100 mg Torsemide (Demadex) 20 mg PO BID [facility] Last Admin: 04/04/17 09:53 Dose: 20 mg Valsartan (Diovan) 160 mg PO DAILY [facility] Last Admin: 04/04/17 09:56 Dose: 160 mg Physical Exam - Constitutional Appears: Well, Non-toxic, No Acute Distress - Extremities Exam Additional comments: Lower extremity focused examination: Vasc: DP/PT pulses palpable 2/4 B/L. Temperature gradient warm to cool B/L, with no increased warmth noted to RLE. Significant pitting edema noted to B/L lower extremities, R>L. CFT < 3 sec to all digits Derm: Superficial scabbed abrasions to distal anterior aspect of R leg with surrounding erythema. No open lesions, no streaking cellulitis, no drainage, no malodor. Ortho: No tenderness elicited on palpation of abrasions or erythematous region of R distal anterior leg - Neurological Exam Neurological exam: Alert, Oriented x3 - Psychiatric Exam Psychiatric exam: Normal Affect, Normal Mood Results - Vital Signs Recent Vital Signs: Last Vital Signs Temp 97.4 F L 04/04/17 08:00 Pulse 90 04/04/17 09:00 Resp 18 04/04/17 08:00 BP 158/82 H 04/04/17 08:00 Pulse Ox 95 04/04/17 08:00 - Labs Result Diagrams: 04/03/17 06:45 04/03/17 06:45 Labs: Laboratory Results - last 24 hr 04/02/17 04/03/17 04/03/17 19:33 06:45 16:24 POC Glucose (mg/dL) 66 116 H Hemoglobin A1c 6.0 Assessment & Plan - Assessment and Plan (Free Text) Assessment: 71 y/o male with RLE swelling and erythema with superficial abrasions Plan: Pt seen and evaluated after consult for podiatric evaluation Discussed plan with attending Dr. Juana Chart, labs and vitals reviewed- afebrile, WBC 6.8 RLE U/S negative for DVT; posterior tibial vein not visualized due to extensive calf edema No dressing needed at this time JAMES applied to RLE for compression Continue IV abx - [facility] will continue to follow while in house Thank you for this consult
--- NOTE | 2017-04-04 14:19 | CP.PCM.PN ---
Subjective - Date & Time of Evaluation Date of Evaluation: 04/04/17 Time of Evaluation: 15:05 - Subjective Subjective: F/U RLE Cellulitis. Less pain in R leg, skin itching improved. Objective - Vital Signs/Intake and Output Vital Signs (last 24 hours): Temp Pulse Resp BP Pulse Ox 98.4 F 88 20 124/71 92 L 04/04/17 12:00 04/04/17 12:00 04/04/17 12:00 04/04/17 12:00 04/04/17 12:00 - Medications Medications: Current Medications Alprazolam (Xanax) 1 mg PO DAILY [facility] Last Admin: 04/04/17 11:24 Dose: 1 mg Aripiprazole (Abilify) 15 mg PO DAILY [facility] Last Admin: 04/04/17 09:54 Dose: 15 mg Atorvastatin Calcium (Lipitor) 20 mg PO DAILY [facility] Last Admin: 04/04/17 09:56 Dose: 20 mg Enoxaparin Sodium (Lovenox) 40 mg SC DAILY [facility] PRN Reason: Protocol Last Admin: 04/04/17 09:51 Dose: 40 mg Fluticasone Propionate (Flonase) 1 spr NADIYA DAILY [facility] Last Admin: 04/04/17 09:52 Dose: 1 spr Glipizide (Glucotrol Xl) 5 mg PO BRK [facility] Last Admin: 04/04/17 08:00 Dose: 5 mg Piperacillin Sod/Tazobactam (Sod 3.375 gm/ Sodium Chloride) 100 mls @ 100 mls/ hr IVPB Q6 [facility] PRN Reason: Protocol Last Admin: 04/04/17 09:50 Dose: 100 mls/hr Vancomycin HCl 1 gm/ Sodium (Chloride) 250 mls @ 166.667 mls/hr IVPB Q12 [facility] PRN Reason: Protocol Last Admin: 04/04/17 09:51 Dose: 166.667 mls/hr Insulin Human Regular (Humulin R) 0 units SC ACCU-CHECK [facility] PRN Reason: Protocol Last Admin: 04/04/17 07:55 Dose: Not Given Loratadine (Claritin) 10 mg PO DAILY [facility] Last Admin: 04/04/17 09:53 Dose: 10 mg Metformin HCl (Glucophage) 250 mg PO BIDWM [facility] Last Admin: 04/04/17 08:20 Dose: 250 mg Montelukast Sodium (Singulair) 10 mg PO QPM [facility] Last Admin: 04/03/17 21:19 Dose: 10 mg Olanzapine (Zyprexa) 15 mg PO DAILY [facility] Last Admin: 04/04/17 09:53 Dose: 15 mg Sertraline HCl (Zoloft) 100 mg PO DAILY [facility] Last Admin: 04/04/17 09:53 Dose: 100 mg Torsemide (Demadex) 20 mg PO BID [facility] Last Admin: 04/04/17 09:53 Dose: 20 mg Valsartan (Diovan) 160 mg PO DAILY [facility] Last Admin: 04/04/17 09:56 Dose: 160 mg - Labs Labs: 04/03/17 06:45 04/03/17 06:45 - Constitutional Appears: No Acute Distress, Chronically Ill - Head Exam Head Exam: NORMAL INSPECTION - Eye Exam Eye Exam: PERRL - ENT Exam ENT Exam: Normal Exam - Neck Exam Neck Exam: Normal Inspection - Respiratory Exam Respiratory Exam: Decreased Breath Sounds (at bases) - Cardiovascular Exam Cardiovascular Exam: REGULAR RHYTHM - GI/Abdominal Exam GI & Abdominal Exam: Soft, Normal Bowel Sounds Additional comments: Obese. - Extremities Exam Extremities Exam: Tenderness (RLE, redness, swelling) Additional comments: Legs edema, L TKR. Amputation of 2 fingers left hand ( Middle and Index). - Back Exam Back Exam: NORMAL INSPECTION - Neurological Exam Neurological Exam: Alert, Oriented x3. absent: Motor Sensory Deficit - Psychiatric Exam Psychiatric exam: Anxious - Skin Skin Exam: Warm Assessment and Plan (1) Cellulitis of right lower extremity Status: Acute (2) COPD (chronic obstructive pulmonary disease) Status: Chronic (3) DMII (diabetes mellitus, type 2) Status: Chronic (4) HTN (hypertension) Status: Chronic (5) RA (rheumatoid arthritis) Status: Chronic (6) Venous insufficiency of lower extremity Status: Chronic (7) Anxiety Status: Chronic (8) High cholesterol Status: Chronic (9) Infestation by bed bug Status: Acute - Assessment and Plan (Free Text) Plan: Continue Zosyn, Vanco and rest of Tx.
[2017-04-04 14:34] LABS: RBC URINE 3 /hpf (0-3); URINE BACTERIA RARE (<OCC); URINE BILIRUBIN NEGATIVE (NEGATIVE); URINE BLOOD NEGATIVE (NEGATIVE); URINE COLOR YELLOW (YELLOW); URINE GLUCOSE (UA) NEG (Normal); URINE KETONE NEGATIVE (NEGATIVE); URINE LEUKOCYTE ESTERASE LARGE Leu/uL (Negative); URINE PROTEIN NEGATIVE (NEGATIVE); URINE UROBILINOGEN 0.2-1.0 mg/dL (0.2-1.0); WBC URINE 5 /hpf (0-5)
--- NOTE | 2017-04-05 00:30 | CP.PCM.PN ---
Subjective - Date & Time of Evaluation Date of Evaluation: 04/05/17 Time of Evaluation: 00:29 - Subjective Subjective: I D NOTE CHART REVIEWED CONTINUE PRESENT RX WILL SEE LATER IN DAY Objective - Vital Signs/Intake and Output Vital Signs (last 24 hours): Temp Pulse Resp BP Pulse Ox 97.3 F L 86 20 148/73 93 L 04/04/17 19:28 04/04/17 19:28 04/04/17 19:28 04/04/17 19:28 04/04/17 19:28 Intake and Output: 04/04/17 04/05/17 18:59 06:59 Intake Total 1650 Output Total 1 Balance 1649 - Medications Medications: Current Medications Alprazolam (Xanax) 1 mg PO DAILY [facility] Last Admin: 04/04/17 11:24 Dose: 1 mg Aripiprazole (Abilify) 15 mg PO DAILY [facility] Last Admin: 04/04/17 09:54 Dose: 15 mg Atorvastatin Calcium (Lipitor) 20 mg PO DAILY [facility] Last Admin: 04/04/17 09:56 Dose: 20 mg Enoxaparin Sodium (Lovenox) 40 mg SC DAILY [facility] PRN Reason: Protocol Last Admin: 04/04/17 09:51 Dose: 40 mg Fluticasone Propionate (Flonase) 1 spr NADIYA DAILY [facility] Last Admin: 04/04/17 09:52 Dose: 1 spr Glipizide (Glucotrol Xl) 5 mg PO BRK [facility] Last Admin: 04/04/17 08:00 Dose: 5 mg Piperacillin Sod/Tazobactam (Sod 3.375 gm/ Sodium Chloride) 100 mls @ 100 mls/ hr IVPB Q6 [facility] PRN Reason: Protocol Last Admin: 04/04/17 21:16 Dose: 100 mls/hr Vancomycin HCl 1 gm/ Sodium (Chloride) 250 mls @ 166.667 mls/hr IVPB Q12 [facility] PRN Reason: Protocol Last Admin: 04/04/17 21:16 Dose: 166.667 mls/hr Insulin Human Regular (Humulin R) 0 units SC ACCU-CHECK [facility] PRN Reason: Protocol Last Admin: 04/04/17 16:45 Dose: Not Given Loratadine (Claritin) 10 mg PO DAILY [facility] Last Admin: 04/04/17 09:53 Dose: 10 mg Metformin HCl (Glucophage) 250 mg PO BIDWM [facility] Last Admin: 04/04/17 16:42 Dose: 250 mg Montelukast Sodium (Singulair) 10 mg PO QPM [facility] Last Admin: 04/04/17 19:08 Dose: 10 mg Olanzapine (Zyprexa) 15 mg PO DAILY [facility] Last Admin: 04/04/17 09:53 Dose: 15 mg Sertraline HCl (Zoloft) 100 mg PO DAILY [facility] Last Admin: 04/04/17 09:53 Dose: 100 mg Torsemide (Demadex) 20 mg PO BID [facility] Last Admin: 04/04/17 16:43 Dose: 20 mg Valsartan (Diovan) 160 mg PO DAILY [facility] Last Admin: 04/04/17 09:56 Dose: 160 mg - Labs Labs: 04/03/17 06:45 04/03/17 06:45
[2017-04-05] MEDS: Piperacillin/Tazobact 3.375 GM in Sodium Chloride 0.9% 100 ML IVPB SCH ×4 (04:30→21:57)
[2017-04-05] MEDS: Insulin Regular 100 units/ml SC SCH ×4 (08:36→22:57)
[2017-04-05] MEDS: Enoxaparin 40 mg Syringe SC SCH (08:37)
[2017-04-05] MEDS: GlipiZIDE 5 mg SR Tab PO SCH (08:39)
--- NOTE | 2017-04-05 14:25 | CP.PCM.PN ---
Subjective - Date & Time of Evaluation Date of Evaluation: 04/05/17 Time of Evaluation: 12:30 - Subjective Subjective: Cellulitis RLE Minimal pain R leg, no skin itching. Objective - Vital Signs/Intake and Output Vital Signs (last 24 hours): Temp Pulse Resp BP Pulse Ox 97.8 F 76 18 103/59 L 93 L 04/05/17 12:30 04/05/17 12:30 04/05/17 12:30 04/05/17 12:30 04/05/17 12:30 - Medications Medications: Current Medications Alprazolam (Xanax) 1 mg PO DAILY [facility] Last Admin: 04/05/17 08:36 Dose: 1 mg Aripiprazole (Abilify) 15 mg PO DAILY [facility] Last Admin: 04/05/17 08:38 Dose: 15 mg Atorvastatin Calcium (Lipitor) 20 mg PO DAILY [facility] Last Admin: 04/05/17 08:41 Dose: 20 mg Enoxaparin Sodium (Lovenox) 40 mg SC DAILY [facility] PRN Reason: Protocol Last Admin: 04/05/17 08:37 Dose: 40 mg Fluticasone Propionate (Flonase) 1 spr NADIYA DAILY [facility] Last Admin: 04/05/17 08:40 Dose: 1 spr Glipizide (Glucotrol Xl) 5 mg PO BRK [facility] Last Admin: 04/05/17 08:39 Dose: 5 mg Piperacillin Sod/Tazobactam (Sod 3.375 gm/ Sodium Chloride) 100 mls @ 100 mls/ hr IVPB Q6 [facility] PRN Reason: Protocol Last Admin: 04/05/17 10:16 Dose: 100 mls/hr Vancomycin HCl 1 gm/ Sodium (Chloride) 250 mls @ 166.667 mls/hr IVPB Q12 [facility] PRN Reason: Protocol Last Admin: 04/05/17 08:37 Dose: 166.667 mls/hr Insulin Human Regular (Humulin R) 0 units SC ACCU-CHECK [facility] PRN Reason: Protocol Last Admin: 04/05/17 08:36 Dose: Not Given Loratadine (Claritin) 10 mg PO DAILY [facility] Last Admin: 04/05/17 08:41 Dose: 10 mg Metformin HCl (Glucophage) 250 mg PO BIDWM [facility] Last Admin: 04/05/17 08:40 Dose: 250 mg Montelukast Sodium (Singulair) 10 mg PO QPM [facility] Last Admin: 04/04/17 19:08 Dose: 10 mg Olanzapine (Zyprexa) 15 mg PO DAILY [facility] Last Admin: 04/05/17 08:41 Dose: 15 mg Sertraline HCl (Zoloft) 100 mg PO DAILY [facility] Last Admin: 04/05/17 08:38 Dose: 100 mg Torsemide (Demadex) 20 mg PO BID [facility] Last Admin: 04/05/17 08:39 Dose: 20 mg Valsartan (Diovan) 160 mg PO DAILY [facility] Last Admin: 04/05/17 08:40 Dose: 160 mg - Labs Labs: 04/03/17 06:45 04/03/17 06:45 - Constitutional Appears: No Acute Distress, Chronically Ill - Head Exam Head Exam: NORMAL INSPECTION - Eye Exam Eye Exam: PERRL - ENT Exam ENT Exam: Normal Exam - Neck Exam Neck Exam: Normal Inspection - Respiratory Exam Respiratory Exam: Decreased Breath Sounds (at bases) - Cardiovascular Exam Cardiovascular Exam: REGULAR RHYTHM - GI/Abdominal Exam GI & Abdominal Exam: Soft, Normal Bowel Sounds Additional comments: Obese - Extremities Exam Extremities Exam: Tenderness (RLE, sweling, redness.) Additional comments: Legs edema, L TKR. 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 - Back Exam Back Exam: NORMAL INSPECTION - Neurological Exam Neurological Exam: Alert, Oriented x3. absent: Motor Sensory Deficit - Psychiatric Exam Psychiatric exam: Anxious - Skin Skin Exam: Warm Additional comments: Skin lesions resolved Assessment and Plan (1) Cellulitis of right lower extremity Status: Acute (2) COPD (chronic obstructive pulmonary disease) Status: Chronic (3) DMII (diabetes mellitus, type 2) Status: Chronic (4) HTN (hypertension) Status: Chronic (5) RA (rheumatoid arthritis) Status: Chronic (6) Venous insufficiency of lower extremity Status: Chronic (7) Anxiety Status: Chronic (8) High cholesterol Status: Chronic (9) Infestation by bed bug Status: Acute - Assessment and Plan (Free Text) Plan: Continue Kian Bradley, ID Consult appreciated.
--- NOTE | 2017-04-05 20:20 | CON ---
INFECTIOUS DISEASE CONSULT DATE: HISTORY OF PRESENT ILLNESS: Patient is a 71-year-old male, who presented to the emergency room with right leg painful swelling for approximately a month. He states he might have hit his right lower leg on a fan at that time. Since then, he has had problem with redness, pain, and swelling. Patient had been evaluated by Dr. Bruce, who prescribed local antibiotic cream and antibiotic pills, but as he noted that the symptoms are worsening, he came to the emergency room today. He apparently also saw some purulent material draining from the wound. Denies any history of fever, chills, or sweats. PAST MEDICAL HISTORY: Includes anxiety, arthritis, asthma. He has bipolar, COPD, diabetes, and hypertension, hypercholesterolemia, rheumatoid arthritis, schizophrenia, and sleep apnea. MEDICATIONS: Include alprazolam, Amaryl, metformin, Singulair, Crestor, Sertraline,valsartan, Ellipta, Zyprexa, and Demadex. PHYSICAL EXAMINATION GENERAL: He is a pleasant 71-year-old male who is alert, cooperative, and oriented to time and place. HEENT: Within normal limits. NECK: Supple. LUNGS: He has decreased breath sounds with some scattered rhonchi. ABDOMEN: Soft. Positive bowel sounds. He has increased abdominal girth. EXTREMITIES: Left lower extremity is negative for DVT and he has on his right lower extremity is noted some area of redness and some excoriation and mild eschar on this particular area. DIAGNOSES: Cellulitis of the right lower extremity of the ankle, chronic obstructive pulmonary disease, diabetes mellitus type 2, hypertension, rheumatoid arthritis, and venous insufficiency of the lower extremities. I agreed with the present regimen of vancomycin and Zosyn. Thank you, we will follow the patient along with you. Scot Watters MD
[2017-04-06] MEDS: Piperacillin/Tazobact 3.375 GM in Sodium Chloride 0.9% 100 ML IVPB SCH ×3 (04:36→15:55)
--- NOTE | 2017-04-06 10:46 | CP.PCM.PN ---
Subjective - Date & Time of Evaluation Date of Evaluation: 04/06/17 Time of Evaluation: 06:20 - Subjective Subjective: 71 y/o male with RLE swelling and erythema with superficial abrasions seen at bedside resting comfortably. Patient is in NAD, AA0x3. Patient reports no pain in the lower extremity today. He denies n/v/sob/cp/chills or f. No other pedal complaints Objective - Vital Signs/Intake and Output Vital Signs (last 24 hours): Temp Pulse Resp BP Pulse Ox 97.9 F 82 18 164/74 H 97 04/06/17 08:41 04/06/17 08:41 04/06/17 08:41 04/06/17 08:41 04/06/17 08:41 - Medications Medications: Current Medications Alprazolam (Xanax) 1 mg PO DAILY@2100 [facility] Last Admin: 04/05/17 22:58 Dose: 1 mg Aripiprazole (Abilify) 15 mg PO DAILY [facility] Last Admin: 04/05/17 08:38 Dose: 15 mg Atorvastatin Calcium (Lipitor) 20 mg PO DAILY [facility] Last Admin: 04/05/17 08:41 Dose: 20 mg Fluticasone Propionate (Flonase) 1 spr NADIYA DAILY [facility] Last Admin: 04/05/17 08:40 Dose: 1 spr Glipizide (Glucotrol Xl) 5 mg PO BRK [facility] Last Admin: 04/05/17 08:39 Dose: 5 mg Piperacillin Sod/Tazobactam (Sod 3.375 gm/ Sodium Chloride) 100 mls @ 100 mls/ hr IVPB Q6 [facility] PRN Reason: Protocol Last Admin: 04/06/17 04:36 Dose: 100 mls/hr Vancomycin HCl 1 gm/ Sodium (Chloride) 250 mls @ 166.667 mls/hr IVPB Q12 [facility] PRN Reason: Protocol Last Admin: 04/05/17 22:56 Dose: 166.667 mls/hr Insulin Human Regular (Humulin R) 0 units SC ACCU-CHECK [facility] PRN Reason: Protocol Last Admin: 04/05/17 22:57 Dose: Not Given Loratadine (Claritin) 10 mg PO DAILY [facility] Last Admin: 04/05/17 08:41 Dose: 10 mg Metformin HCl (Glucophage) 250 mg PO BIDWM [facility] Last Admin: 04/05/17 16:54 Dose: 250 mg Montelukast Sodium (Singulair) 10 mg PO QPM [facility] Last Admin: 04/04/17 19:08 Dose: 10 mg Olanzapine (Zyprexa) 15 mg PO DAILY [facility] Last Admin: 04/05/17 08:41 Dose: 15 mg Sertraline HCl (Zoloft) 100 mg PO DAILY [facility] Last Admin: 04/05/17 08:38 Dose: 100 mg Torsemide (Demadex) 20 mg PO BID [facility] Last Admin: 04/05/17 16:55 Dose: 20 mg Valsartan (Diovan) 160 mg PO DAILY [facility] Last Admin: 04/05/17 08:40 Dose: 160 mg - Labs Labs: 04/03/17 06:45 04/03/17 06:45 - Constitutional Appears: Well, Non-toxic, No Acute Distress - Extremities Exam Additional comments: Lower extremity focused examination: Vasc: DP/PT pulses palpable 2/4 B/L. Temperature gradient warm to cool B/L, with no increased warmth noted to RLE. Significant pitting edema noted to B/L lower extremities, R>L. CFT < 3 sec to all digits Derm: Superficial scabbed abrasions to distal anterior aspect of R leg with surrounding erythema. No open lesions, no streaking cellulitis, no drainage, no malodor. Ortho: No tenderness elicited on palpation of abrasions or erythematous region of R distal anterior leg - Neurological Exam Neurological Exam: Alert, Awake, Oriented x3 - Psychiatric Exam Psychiatric exam: Normal Affect, Normal Mood Assessment and Plan - Assessment and Plan (Free Text) Assessment: 71 y/o male with RLE swelling and erythema with superficial abrasions Plan: Pt seen and evaluated Discussed plan with attending Dr. Arias Chart, labs and vitals reviewed- afebrile, WBC 6.8 (04/03/17) RLE U/S negative for DVT; posterior tibial vein not visualized due to extensive calf edema No dressing needed at this time JAMES applied to RLE for compression Continue IV abx - Vanco, Zosyn Podiatry will continue to follow while in house
[2017-04-06] MEDS: Insulin Regular 100 units/ml SC SCH ×3 (10:53→18:39)
[2017-04-06] MEDS: Enoxaparin 40 mg Syringe SC SCH (10:59)
[2017-04-06] MEDS: GlipiZIDE 5 mg SR Tab PO SCH (10:59)
--- NOTE | 2017-04-06 13:28 | CP.PCM.PN ---
Subjective - Date & Time of Evaluation Date of Evaluation: 04/06/17 Time of Evaluation: 12:00 - Subjective Subjective: F/U RLE Cellulites. Pt with less pain in R leg and feet. Objective - Vital Signs/Intake and Output Vital Signs (last 24 hours): Temp Pulse Resp BP Pulse Ox 98.1 F 81 19 115/80 94 L 04/06/17 13:05 04/06/17 13:05 04/06/17 13:05 04/06/17 13:05 04/06/17 13:05 - Medications Medications: Current Medications Alprazolam (Xanax) 1 mg PO DAILY@2100 [facility] Last Admin: 04/05/17 22:58 Dose: 1 mg Aripiprazole (Abilify) 15 mg PO DAILY [facility] Last Admin: 04/06/17 10:55 Dose: 15 mg Atorvastatin Calcium (Lipitor) 20 mg PO DAILY [facility] Last Admin: 04/06/17 10:59 Dose: 20 mg Fluticasone Propionate (Flonase) 1 spr NADIYA DAILY [facility] Last Admin: 04/06/17 10:57 Dose: 1 spr Glipizide (Glucotrol Xl) 5 mg PO BRK [facility] Last Admin: 04/06/17 10:59 Dose: 5 mg Piperacillin Sod/Tazobactam (Sod 3.375 gm/ Sodium Chloride) 100 mls @ 100 mls/ hr IVPB Q6 [facility] PRN Reason: Protocol Last Admin: 04/06/17 04:36 Dose: 100 mls/hr Vancomycin HCl 1 gm/ Sodium (Chloride) 250 mls @ 166.667 mls/hr IVPB Q12 [facility] PRN Reason: Protocol Last Admin: 04/06/17 10:54 Dose: 166.667 mls/hr Insulin Human Regular (Humulin R) 0 units SC ACCU-CHECK [facility] PRN Reason: Protocol Last Admin: 04/06/17 10:53 Dose: Not Given Loratadine (Claritin) 10 mg PO DAILY [facility] Last Admin: 04/06/17 10:56 Dose: 10 mg Metformin HCl (Glucophage) 250 mg PO BIDWM [facility] Last Admin: 04/06/17 10:58 Dose: 250 mg Montelukast Sodium (Singulair) 10 mg PO QPM [facility] Last Admin: 04/04/17 19:08 Dose: 10 mg Olanzapine (Zyprexa) 15 mg PO DAILY [facility] Last Admin: 04/06/17 10:59 Dose: 15 mg Sertraline HCl (Zoloft) 100 mg PO DAILY [facility] Last Admin: 04/06/17 11:00 Dose: 100 mg Torsemide (Demadex) 20 mg PO BID [facility] Last Admin: 04/06/17 10:56 Dose: 20 mg Valsartan (Diovan) 160 mg PO DAILY [facility] Last Admin: 04/06/17 10:56 Dose: 160 mg - Labs Labs: 04/03/17 06:45 04/03/17 06:45 - Constitutional Appears: No Acute Distress, Chronically Ill - Head Exam Head Exam: NORMAL INSPECTION - Eye Exam Eye Exam: PERRL - ENT Exam ENT Exam: Normal Exam - Neck Exam Neck Exam: Normal Inspection - Respiratory Exam Respiratory Exam: Decreased Breath Sounds (at bases) - Cardiovascular Exam Cardiovascular Exam: REGULAR RHYTHM - GI/Abdominal Exam GI & Abdominal Exam: Soft, Normal Bowel Sounds Additional comments: Obese. - Extremities Exam Extremities Exam: Tenderness (RLE, swelling) Additional comments: BLE edema. L TKR, Amputation of 2 fingers L hand ( Middle and Index) - Back Exam Back Exam: NORMAL INSPECTION - Neurological Exam Neurological Exam: Alert, Oriented x3. absent: Motor Sensory Deficit - Psychiatric Exam Psychiatric exam: Anxious - Skin Skin Exam: Warm Assessment and Plan (1) Cellulitis of right lower extremity Status: Acute (2) COPD (chronic obstructive pulmonary disease) Status: Chronic (3) DMII (diabetes mellitus, type 2) Status: Chronic (4) HTN (hypertension) Status: Chronic (5) RA (rheumatoid arthritis) Status: Chronic (6) Venous insufficiency of lower extremity Status: Chronic (7) Anxiety Status: Chronic (8) High cholesterol Status: Chronic (9) Infestation by bed bug Status: Acute - Assessment and Plan (Free Text) Plan: Kirk Lawson. Pt improved and stable to be discharged to [facility] acute rehab to continue abx Tx. I will follow Pt in this facility.
[2017-04-06 16:48] VITALS: BP 132/78; PULSE 83; RESP 20; TEMP 97.8; O2SAT 92
== END 2017-04-06 20:30 | DRG 603 ==
LOC: H.ER 17:00 → H.ERHOLD 22:22 → H.TEL 04-03 02:13
PROVIDERS: ADMIT Internal Medicine Pulmonary Disease; ATTEND Internal Medicine Pulmonary Disease
DX: L03.115 Cellulitis of right lower limb (principal); Z68.42 Body mass index [BMI] 45.0-49.9, adult; I10 Essential (primary) hypertension; B88.8 Other specified infestations; E11.9 Type 2 diabetes mellitus without complications; J43.9 Emphysema, unspecified; F20.9 Schizophrenia, unspecified; F31.9 Bipolar disorder, unspecified; E78.00 Pure hypercholesterolemia, unspecified; E66.01 Morbid (severe) obesity due to excess calories; F41.9 Anxiety disorder, unspecified; G47.30 Sleep apnea, unspecified; H40.9 Unspecified glaucoma; I87.2 Venous insufficiency (chronic) (peripheral); M06.9 Rheumatoid arthritis, unspecified; Z79.899 Other long term (current) drug therapy; Z85.46 Personal history of malignant neoplasm of prostate; Z87.891 Personal history of nicotine dependence; Z96.652 Presence of left artificial knee joint; F32.9 Major depressive disorder, single episode, unspecified; H26.9 Unspecified cataract; M19.90 Unspecified osteoarthritis, unspecified site; R60.9 Edema, unspecified; Z79.84 Long term (current) use of oral hypoglycemic drugs; M79.604 Pain in right leg; R20.2 Paresthesia of skin; R26.2 Difficulty in walking, not elsewhere classified; Z89.022 Acquired absence of left finger(s)

== ENCOUNTER 2018-11-04 11:35 | Emergency (ER) | payer MEDICARE, MEDICAID ==
[2018-11-04 11:35] VITALS: BMI 45.0
--- NOTE | 2018-11-04 12:53 | ED PDOC ---
HPI: Psych/Substance Abuse Time Seen by Provider: 11/04/18 12:10 Chief Complaint (Nursing): Psychiatric Evaluation Chief Complaint (Provider): Psychiatric Evaluation History Per: Patient Onset/Duration Of Symptoms: Hrs Additional History Per: Group Home ([facility]) Additional Complaint(s): 73 year old male brought in from [facility] for psychiatric evaluation as per transfer sheet. Patient verbalized to [employer] that he wanted to "end it all." He completely denies this and thinks it is laughable. Patient states that he feels well and denies HI/SI, hallucinations, offers no complaints. Past Medical History Reviewed: Historical Data, Nursing Documentation, Vital Signs Vital Signs: Last Vital Signs Temp 97.8 F 11/04/18 12:09 Pulse 74 11/04/18 12:09 Resp 20 11/04/18 12:09 BP 127/57 L 11/04/18 12:09 Pulse Ox 97 11/04/18 12:09 - Medical History PMH: Anxiety, Arthritis, Asthma, Bipolar Disorder, COPD, Depression, Diabetes, Emphysema, HTN, Hypercholesterolemia, Rheumatoid Arthritis, Schizophrenia, Sleep Apnea Denies: Chronic Kidney Disease - Surgical History Surgical History: No Surg Hx - Family History Family History: States: Unknown Family Hx - Social History Current smoker - smoking cessation education provided: No Ex-Smoker (has not smoked in the last 12 months): Yes Alcohol: None Drugs: Denies - Home Medications Home Medications: Ambulatory Orders Medication Instructions Recorded ALPRAZolam [Xanax] 1 mg PO DAILY 08/10/16 Aripiprazole 15 mg PO DAILY 08/10/16 Glimepiride [amaRYL] 2 mg PO QAM 08/10/16 Levocetirizine Dihydrochloride 5 mg PO DAILY 08/10/16 [Xyzal] Metformin HCl [Metformin ER 500 mg PO DAILY 08/10/16 Osmotic] Montelukast Sodium [Singulair] 10 mg PO QPM 08/10/16 Rosuvastatin Calcium [Crestor] 10 mg PO DAILY 08/10/16 Sertraline HCl 100 mg PO DAILY 08/10/16 Valsartan [Diovan] 160 mg PO DAILY 08/10/16 Fluticasone Nasal [Flonase] 1 spray NADIYA DAILY 08/12/16 Fluticasone/Vilanterol [Breo 1 puff INH DAILY 08/12/16 Ellipta 200-25 Mcg INH] Olanzapine [Zyprexa] 15 mg PO DAILY 04/03/17 Torsemide [Demadex] 20 mg PO BID 04/03/17 Insulin Human Regular [HumuLIN R] 0 units SC ACCU-CHECK ml 04/06/17 Piperacill/Tazo 3.375gm in Dex 3.375 gm IVPB Q6 #15 bag 04/06/17 [Zosyn 3.375 Gm IV] - Allergies Allergies/Adverse Reactions: Allergies Allergy/AdvReac Type Severity Reaction Status Date / Time No Known Allergies Allergy Verified 11/04/18 12:08 Review of Systems ROS Statement: Except As Marked, All Systems Reviewed And Found Negative Neurological: Negative for: Other (denies hallucinations) Psych: Negative for: Suicidal ideation (also denies HI) Physical Exam - Reviewed Nursing Documentation Reviewed: Yes Vital Signs Reviewed: Yes - Physical Exam Appears: Positive for: No Acute Distress Skin: Positive for: Normal Color, Warm, Dry Eye Exam: Positive for: EOMI, Normal appearance, PERRL ENT: Positive for: Normal ENT Inspection Cardiovascular/Chest: Positive for: Regular Rate, Rhythm. Negative for: Murmur Respiratory: Positive for: Normal Breath Sounds. Negative for: Respiratory Distress Gastrointestinal/Abdominal: Positive for: Normal Exam, Soft. Negative for: Tenderness Neurological/Psych: Positive for: Alert, Oriented (x3), Mood/Affect (calm, cooperative, jovial, happy) - ECG O2 Sat by Pulse Oximetry: 97 (RA) Pulse Ox Interpretation: Normal Medical Decision Making Medical Decision Making: Time: 1241 Initial Impression: Initial Plan: --FSBS ---- Scribe Attestation: Documented by Nestor Driver, acting as a scribe for Ankush Mckeon PA-C Provider Scribe Attestation: All medical record entries made by the Scribe were at my direction and personally dictated by me. I have reviewed the chart and agree that the record accurately reflects my personal performance of the history, physical exam, medical decision making, and the department course for this patient. I have also personally directed, reviewed, and agree with the discharge instructions and disposition. Disposition - Clinical Impression Clinical Impression: Depression - Patient ED Disposition Is Patient to be Admitted: No - Disposition Disposition: [facility] Disposition Time: 15:05 Condition: STABLE Additional Instructions: Patient is cleared to return back to [facility]. Instructions: Depression, Adult (DC) Forms: [employer] (Yoruba)
[2018-11-04 18:51] VITALS: BP 132/53; PULSE 80; RESP 16; TEMP 98.7
[2018-11-06 16:45] VITALS: O2SAT 97
== END 2018-11-04 18:48 | disposition home or self-care (01) ==
LOC: H.ER 11:35
DX: F32.9 Major depressive disorder, single episode, unspecified (principal); Z00.8 Encounter for other general examination; Z86.59 Personal history of other mental and behavioral disorders; E11.9 Type 2 diabetes mellitus without complications; I10 Essential (primary) hypertension; J44.9 Chronic obstructive pulmonary disease, unspecified; Z79.84 Long term (current) use of oral hypoglycemic drugs; Z87.891 Personal history of nicotine dependence; M06.9 Rheumatoid arthritis, unspecified; E78.00 Pure hypercholesterolemia, unspecified